=== PATIENT | male | born 2000 | race Caucasian/White ===

== ENCOUNTER 2021-08-30 18:41 | Emergency (ER) | payer OTHER, SELFPAY ==
--- NOTE | ~2021-08-30 | CT_ITS ---
EXAMINATION: CT brain wo con DATE: 08/30/2021 21:06 INDICATION: Head injury. TECHNIQUE: Computed tomography (CT) of the head was performed without intravenous contrast. The mA wa s adjusted according to patient size. Iterative reconstruction technique was employed. The dose-lengt h product was 605.33 mGy-cm. COMPARISON: None FINDINGS: There is no intracranial hemorrhage, acute infarction, or abnormal intracranial mass lesion . The ventricles are normal in size. The orbits are normal. There is mild mucosal thickening in the p aranasal sinuses. The mastoid air cells are normal. IMPRESSION: 1. Normal brain. Reviewed, dictated and finalized at location A. IMPRESSION: 1. Normal brain.
[2021-08-30 19:41] VITALS: BP 115/77; PULSE 78; RESP 16; TEMP 36.7; O2SAT 100
--- NOTE | 2021-08-30 20:54 | ED.GENADULT ---
HPI - General Adult General Chief complaint: Head Injury Stated complaint: head lac - injury 08/27 Time Seen by Provider: 08/30/21 20:50 Source: RN notes reviewed History of Present Illness HPI narrative: Patient presents emergency room from home for headache. Patient states he was playing hockey 3 days ago when he was checked from behind the boards he states he struck his left forehead on the board was wearing his helmet but did sustain an abrasion over his left forehead states he has a brief loss of consciousness he states that since that time whenever he touches his head in this region there is tenderness that shoots across the top of his scalp he denies any vision changes numbness or tingling in extremities nausea vomiting or any other symptoms. Related Data Allergies Allergy/AdvReac Type Severity Reaction Status Date / Time No Known Allergies Allergy Mild Verified 02/24/21 09:43 Review of Systems Review of Systems: Gen.: Denies fevers or chills Eyes: Denies eye pain or visual change ENT: Denies congestion Respiratory: Denies shortness of breath CV: Denies chest pain GI: Denies abdominal pain nausea, emesis Musculoskeletal: Denies back pain or muscle pain Neuro: See HPI Skin: Denies rash Except as documented, all other systems reviewed and negative [facility] Past Medical History Medical History History of anemia as a child Family History Family History (Updated 02/24/21 @ 10:29 by Meg Wright CMA) Mother Cerebrovascular accident Social History Social History Smoking status: Never smoker Alcohol intake: current Drinks per week: 2 Substance use: current Substance use type: marijuana Exam Narrative: APPEARANCE: No acute distress, nontoxic, resting in bed EYES: EOMI, PERRL HEENT: Normocephalic, superficial abrasion over left superior forehead no active bleeding or signs of infection tenderness palpation in this region with no definitive step-off noted remainder the face is nontender bilateral TMs normal in appearance, nares patent or mucosa moist RESPIRATORY: No respiratory distress Clear to auscultation bilaterally with no rhonchi wheezing or rales. CARDIOVASCULAR: Regular rate and rhythm without murmurs rubs or gallops. ABDOMINAL: Soft, nontender, nondistended MUSCULOSKELETAl: Moves all extremities. No clubbing, cyanosis or edema. NEURO: Awake and alert x 4. Following commands, speech normal, no focal deficits SKIN:: Warm, dry. No rashes lesions or abrasions PSYCHIATRIC: Normal affect/mood, Course Course Emergency Course: Discussed with patient results of workup and diagnosis. Discussed need for follow-up with primary care, proper use of medication, and reasons to return to the emergency department. Patient understands and agrees to current treatment plan Vital Signs Vital signs: Vital Signs Temperature 98.1 F 08/30/21 19:41 Pulse Rate 78 08/30/21 19:41 Respiratory Rate 16 08/30/21 19:41 Blood Pressure 115/77 08/30/21 19:41 Pulse Oximetry 100 08/30/21 19:41 Temperature 98.1 F 08/30/21 19:41 Pulse Rate 78 08/30/21 19:41 Respiratory Rate 16 08/30/21 19:41 Blood Pressure 115/77 08/30/21 19:41 Pulse Oximetry 100 08/30/21 19:41 Medical Decision Making Vital Signs Vital Signs: Vital Signs Temperature 98.1 F 08/30/21 19:41 Pulse Rate 78 08/30/21 19:41 Respiratory Rate 16 08/30/21 19:41 Blood Pressure 115/77 08/30/21 19:41 Pulse Oximetry 100 08/30/21 19:41 Temperature 98.1 F 08/30/21 19:41 Pulse Rate 78 08/30/21 19:41 Respiratory Rate 16 08/30/21 19:41 Blood Pressure 115/77 08/30/21 19:41 Pulse Oximetry 100 08/30/21 19:41 Imaging Data Radiologist's impression: ITS Impressions Head CT 08/30/21 21:17 IMPRESSION: 1. Normal brain. Discharge Plan Discharge Clinical Impression:
== END 2021-08-30 21:55 | disposition home or self-care (01) ==
LOC: ANHED 21:38
PROVIDERS: Emergency Provider Emergency Medicine; PCP Family Medicine
DX: S00.93XA Contusion of unspecified part of head, initial encounter (principal); W22.8XXA Striking against or struck by other objects, initial encounter; Y93.65 Activity, lacrosse and field hockey
CPT/HCPCS: 70450; 99284